=== PATIENT | female | born 1995 | race Caucasian/White ===

== ENCOUNTER → 2022-07-09 | Outpatient (CLI) | payer BC, OTHER ==
[~2022-07-09] MED LIST: GLUCAGON EMERGEN1 MG INJ; IBU800 MG PO; REGLAN10 MG PO
== END ==
LOC: KOH-I 13:01
DX: M79.671 Pain in right foot (principal); M79.672 Pain in left foot
CPT/HCPCS: 73620

== ENCOUNTER → 2022-07-17 | Outpatient (CLI) | payer BC, OTHER | LOC: KOH-I 09:16 | DX: R22.42 Localized swelling, mass and lump, left lower limb (principal); M79.89 Other specified soft tissue disorders | CPT/HCPCS: 73700 ==